=== PATIENT | male | born 1960 | race Caucasian/White ===

== ENCOUNTER 2017-10-05 22:10 | Emergency (ER) | payer SELFPAY ==
--- NOTE | 2017-10-05 22:22 | NUR ---
CALLED NO ANSWER
--- NOTE | 2017-10-05 22:46 | NUR ---
CALLED NO ANSWER
== END 2017-10-05 22:58 | disposition left against medical advice (07) ==
LOC: ER 22:10
DX: Z53.21 Procedure and treatment not carried out due to patient leaving prior to being seen by health care provider (principal)